=== PATIENT | female | born 1930 | race Caucasian/White ===

== ENCOUNTER 2019-02-10 00:18 | Inpatient (IN) | payer MEDICAID ==
[2019-02-10 02:23] LABS: ADD MAN DIFF? NO
[2019-02-10 02:24] LABS: BASOPHILS % 0.3 % (0.0-2.0); EOSINOPHILS % 0.2 % (0.0-7.0); HEMATOCRIT 31.7 % (37.0-47.0); HEMOGLOBIN 9.9 g/dl (12.0-16.0); LYMPHOCYTES # 2.1 10^3/ul (0.8-2.9); LYMPHOCYTES % 17.5 % (15.0-51.0); MEAN CORPUSCULAR HEMOGLOBIN 28.2 pg (29.0-33.0); MEAN CORPUSCULAR HGB CONC 31.2 g/dl (32.0-37.0); MEAN CORPUSCULAR VOLUME 90.3 fl (82.0-101.0); MEAN PLATELET VOLUME 9.6 fl (7.4-10.4); MONOCYTE # 1.1 10^3/ul (0.3-0.9); MONOCYTES % 8.8 % (0.0-11.0); NEUTROPHIL # 8.7 10^3/ul (1.6-7.5); NEUTROPHILS % 72.4 % (39.0-77.0); PLATELET COUNT 352 10^3/UL (140-415); RED BLOOD COUNT 3.51 10^6/ul (4.20-5.40); RED CELL DISTRIBUTION WIDTH 13.2 % (11.5-14.5)
[2019-02-10 02:44] LABS: ALANINE AMINOTRANSFERASE 38 IU/L (13-69); ALBUMIN 3.2 g/dl (3.3-4.9); ALBUMIN/GLOBULIN RATIO 0.86; ALKALINE PHOSPHATASE 88 IU/L (42-121); ANION GAP 5 (5-13); ASPARTATE AMINO TRANSFERASE 38 IU/L (15-46); BILIRUBIN,INDIRECT 0.3 mg/dl (0-1.1); BILIRUBIN,TOTAL 0.3 mg/dl (0.2-1.3); BLOOD UREA NITROGEN 15 mg/dl (7-20); CARBON DIOXIDE 32 mmol/L (21-31); CHLORIDE 103 mmol/L (97-110); CREATININE 0.53 mg/dl (0.44-1.00); GLUCOSE 123 mg/dl (70-220); LIPASE 11 U/L (23-300); POTASSIUM 4.6 mmol/L (3.5-5.1); SODIUM 140 mmol/L (135-144); TOTAL PROTEIN 6.9 g/dl (6.1-8.1)
[2019-02-10 02:47] LABS: ADD UMIC NO; UR ASCORBIC ACID 40 mg/dL (NEGATIVE); UR BILIRUBIN (Dip) NEGATIVE (NEGATIVE); UR BLOOD (Dip) NEGATIVE (NEGATIVE); UR CLARITY CLEAR (CLEAR); UR COLOR YELLOW (YELLOW); UR GLUCOSE (Dip) NEGATIVE (NEGATIVE); UR KETONES (Dip) NEGATIVE (NEGATIVE); UR LEUKOCYTE ESTERASE (Dip) NEGATIVE Leu/ul (NEGATIVE); UR NITRITE (Dip) NEGATIVE (NEGATIVE); UR SPECIFIC GRAVITY (Dip) 1.019 (1.003-1.030); UR TOTAL PROTEIN (Dip) NEGATIVE (NEGATIVE); UR UROBILINOGEN (Dip) NEGATIVE (NEGATIVE)
[2019-02-10] MEDS: morphine 2 MG INJ IV ×2 (04:25→06:09)
[2019-02-10] MEDS: ONDANSETRON 4 MG INJ IV (04:25)
[2019-02-10] MEDS ORDERED: NACL 0.9% 3 ML SYG IV (05:30)
[2019-02-10] MEDS ORDERED: ONDANSETRON 4 MG INJ IV (05:30)
[2019-02-10] MEDS ORDERED: VANCOMYCIN IV PER PHARMACY XX (05:30)
[2019-02-10] MEDS: SOD CHLORIDE 0.9% 1,000 ML IV ×2 (06:08→17:11)
[2019-02-10] MEDS: CEFTRIAXONE 1 GM/50 ML (PMX) 50 ML IVPB (06:08)
[2019-02-10] MEDS: VANCOMYCIN 1 GM 250 ML IVPB (06:46)
[2019-02-10 07:21] LABS: C-REACTIVE PROTEIN 19.9 mg/dl (0.0-0.9)
[2019-02-10] MEDS ORDERED: PENDING SANTYL ORDER FOR WOUND CARE XX (07:30)
[2019-02-10] MEDS ORDERED: COLLAGENASE 5 GM (UD JAR) TOP (07:30)
[2019-02-10 07:52] LABS: ERYTHROCYTE SEDIMENTATION RATE 85 mm/Hr (0-30)
[2019-02-10] MEDS: LORAZEPAM 2 MG INJ IV (08:08)
[2019-02-10] MEDS: COLLAGENASE 5 GM (UD JAR) TOP (09:32)
[2019-02-10] MEDS: MUPIROCIN 2% 22 GM OINT TOP ×2 (15:39→22:18)
[2019-02-10] MEDS: RANITIDINE 150 MG TAB GTB (21:42)
[2019-02-10] MEDS: traMADol 50 MG TAB GTB (21:43)
[2019-02-10] MEDS: AMLODIPINE 5 MG TAB PO (22:17)
[2019-02-10] MEDS: SENNA TAB GTB (22:18)
[2019-02-10] MEDS: PIPER-TAZO 3.375 GM IV (PMX) 100 ML IVPB (23:27)
[2019-02-11] MEDS ORDERED: PIPER-TAZO 3.375 GM IV (PMX) 100 ML IVPB
[2019-02-11] MEDS: morphine 2 MG INJ IV (01:24)
[2019-02-11] MEDS: PIPER-TAZO 3.375 GM IV (PMX) 100 ML IVPB ×3 (05:56→21:30)
[2019-02-11 06:14] LABS: ADD MAN DIFF? NO
[2019-02-11] MEDS: SOD CHLORIDE 0.9% 1,000 ML IV ×2 (06:15→18:12)
[2019-02-11 06:35] LABS: WHITE BLOOD COUNT 12.7 10^3/ul (4.8-10.8)
[2019-02-11 06:35] LABS: BASOPHILS % 0.3 % (0.0-2.0); EOSINOPHILS % 0.3 % (0.0-7.0); HEMATOCRIT 36.3 % (37.0-47.0); HEMOGLOBIN 11.5 g/dl (12.0-16.0); LYMPHOCYTES # 1.6 10^3/ul (0.8-2.9); LYMPHOCYTES % 12.8 % (15.0-51.0); MEAN CORPUSCULAR HEMOGLOBIN 28.3 pg (29.0-33.0); MEAN CORPUSCULAR HGB CONC 31.7 g/dl (32.0-37.0); MEAN CORPUSCULAR VOLUME 89.2 fl (82.0-101.0); MEAN PLATELET VOLUME 10.2 fl (7.4-10.4); MONOCYTE # 0.9 10^3/ul (0.3-0.9); MONOCYTES % 7.3 % (0.0-11.0); NEUTROPHIL # 9.9 10^3/ul (1.6-7.5); NEUTROPHILS % 78.1 % (39.0-77.0); PLATELET COUNT 313 10^3/UL (140-415); RED BLOOD COUNT 4.07 10^6/ul (4.20-5.40); RED CELL DISTRIBUTION WIDTH 13.1 % (11.5-14.5)
[2019-02-11 07:47] LABS: HEMOGLOBIN A1C 6.3 % (0-5.9)
[2019-02-11 07:48] LABS: ALANINE AMINOTRANSFERASE 36 IU/L (13-69); ALBUMIN 3.4 g/dl (3.3-4.9); ALBUMIN/GLOBULIN RATIO 0.89; ALKALINE PHOSPHATASE 108 IU/L (42-121); ANION GAP 9 (5-13); ASPARTATE AMINO TRANSFERASE 52 IU/L (15-46); BILIRUBIN,INDIRECT 0.3 mg/dl (0-1.1); BILIRUBIN,TOTAL 0.3 mg/dl (0.2-1.3); BLOOD UREA NITROGEN 12 mg/dl (7-20); CALCIUM 9.1 mg/dl (8.4-10.2); CARBON DIOXIDE 27 mmol/L (21-31); CHLORIDE 101 mmol/L (97-110); CREATININE 0.53 mg/dl (0.44-1.00); GLUCOSE 158 mg/dl (70-220); POTASSIUM 4.1 mmol/L (3.5-5.1); SODIUM 137 mmol/L (135-144); TOTAL PROTEIN 7.2 g/dl (6.1-8.1)
[2019-02-11 07:54] LABS: CHOLESTEROL 140 mg/dl (100-200)
[2019-02-11 07:54] LABS: CHOL/HDL RATIO 3.6 RATIO; HDL CHOLESTEROL 38 mg/dl (33-92); LDL CHOLESTEROL,CALCULATED 87 mg/dl; TRIGLYCERIDES 75 mg/dl (0-149)
[2019-02-11] MEDS: VANCOMYCIN 1 GM 250 ML IVPB (08:23)
[2019-02-11] MEDS: COLLAGENASE 5 GM (UD JAR) TOP (08:23)
[2019-02-11] MEDS: MUPIROCIN 2% 22 GM OINT TOP ×2 (08:24→21:27)
[2019-02-11] MEDS: AMLODIPINE 5 MG TAB PO (08:24)
[2019-02-11] MEDS: RANITIDINE 150 MG TAB GTB ×2 (08:24→21:18)
[2019-02-11] MEDS: GABAPENTIN 300 MG CAP GTB ×2 (13:56→21:19)
[2019-02-11] MEDS: ASPIRIN 81 MG TAB PO (13:56)
[2019-02-11] MEDS: DOCUSATE SODIUM 100 MG CAP PO (21:00)
[2019-02-11] MEDS: SENNA TAB GTB (21:18)
[2019-02-11] MEDS: FAMOTIDINE 20 MG TAB GTB (21:19)
[2019-02-11] MEDS: METOPROLOL 50 MG TAB GTB (21:21)
[2019-02-12] MEDS: SOD CHLORIDE 0.9% 1,000 ML IV ×2 (03:14→19:45)
[2019-02-12 05:39] LABS: ADD MAN DIFF? NO
[2019-02-12 05:54] LABS: BASOPHILS % 0.3 % (0.0-2.0); EOSINOPHILS # 0.1 10^3/ul (0.0-0.5); EOSINOPHILS % 0.6 % (0.0-7.0); HEMATOCRIT 32.6 % (37.0-47.0); LYMPHOCYTES # 1.8 10^3/ul (0.8-2.9); LYMPHOCYTES % 15.1 % (15.0-51.0); MEAN CORPUSCULAR HEMOGLOBIN 27.9 pg (29.0-33.0); MEAN CORPUSCULAR HGB CONC 30.7 g/dl (32.0-37.0); MEAN CORPUSCULAR VOLUME 90.8 fl (82.0-101.0); MEAN PLATELET VOLUME 10.3 fl (7.4-10.4); MONOCYTE # 0.9 10^3/ul (0.3-0.9); MONOCYTES % 7.4 % (0.0-11.0); NEUTROPHILS % 75.8 % (39.0-77.0); PLATELET COUNT 315 10^3/UL (140-415); RED BLOOD COUNT 3.59 10^6/ul (4.20-5.40); RED CELL DISTRIBUTION WIDTH 13.2 % (11.5-14.5)
[2019-02-12 05:54] LABS: WHITE BLOOD COUNT 11.8 10^3/ul (4.8-10.8)
[2019-02-12 05:56] LABS: POSITIVE DIFF @See below
[2019-02-12] MEDS: PIPER-TAZO 3.375 GM IV (PMX) 100 ML IVPB ×2 (06:00→08:34)
[2019-02-12 06:14] LABS: ALANINE AMINOTRANSFERASE 49 IU/L (13-69); ALBUMIN 2.9 g/dl (3.3-4.9); ALBUMIN/GLOBULIN RATIO 0.85; ALKALINE PHOSPHATASE 96 IU/L (42-121); ANION GAP 4 (5-13); ASPARTATE AMINO TRANSFERASE 53 IU/L (15-46); BILIRUBIN,INDIRECT 0.2 mg/dl (0-1.1); BILIRUBIN,TOTAL 0.2 mg/dl (0.2-1.3); BLOOD UREA NITROGEN 15 mg/dl (7-20); CALCIUM 8.1 mg/dl (8.4-10.2); CARBON DIOXIDE 31 mmol/L (21-31); CHLORIDE 105 mmol/L (97-110); CREATININE 0.53 mg/dl (0.44-1.00); GLUCOSE 175 mg/dl (70-220); POTASSIUM 4.2 mmol/L (3.5-5.1); SODIUM 140 mmol/L (135-144); TOTAL PROTEIN 6.3 g/dl (6.1-8.1)
[2019-02-12] MEDS: GABAPENTIN 300 MG CAP GTB ×3 (06:17→21:27)
[2019-02-12] MEDS: traMADol 50 MG TAB GTB (06:17)
[2019-02-12] MEDS: DOCUSATE SODIUM 10 MG/ML (10ML CUP) GTB ×2 (08:31→21:27)
[2019-02-12] MEDS: ENOXAPARIN 30 MG/0.3 ML SYG SC (08:31)
[2019-02-12] MEDS: ASCORBIC ACID 500 MG TAB GTB (08:34)
[2019-02-12] MEDS: ZINC SULFATE 220 MG CAP GTB (08:34)
[2019-02-12] MEDS: AMLODIPINE 5 MG TAB PO (08:35)
[2019-02-12] MEDS: METOPROLOL 50 MG TAB GTB ×2 (08:35→21:29)
[2019-02-12] MEDS: MULTIVITAMINS/MINERALS TAB PO (08:35)
[2019-02-12] MEDS: RANITIDINE 150 MG TAB GTB ×2 (08:35→21:27)
[2019-02-12] MEDS: ASPIRIN 81 MG TAB PO (08:35)
[2019-02-12] MEDS: COLLAGENASE 5 GM (UD JAR) TOP (08:36)
[2019-02-12] MEDS: MUPIROCIN 2% 22 GM OINT TOP ×2 (08:36→22:40)
[2019-02-12] MEDS: VANCOMYCIN 1 GM 250 ML IVPB (09:41)
[2019-02-12] MEDS: LIDOCAINE 1% (MPF) 5 ML VIAL SC (13:50)
[2019-02-12] MEDS: CEFEPIME 1GM/50 ML (PMX) 50 ML IVPB (21:27)
[2019-02-12] MEDS: SENNA TAB GTB (21:27)
[2019-02-12] MEDS: FAMOTIDINE 20 MG TAB GTB (21:28)
[2019-02-13] MEDS: SOD CHLORIDE 0.9% 1,000 ML IV ×2 (01:19→20:36)
[2019-02-13] MEDS: hydrALAzine 20 MG INJ IV (05:41)
[2019-02-13] MEDS: GABAPENTIN 300 MG CAP GTB ×3 (05:53→21:15)
[2019-02-13 08:36] LABS: ADD MAN DIFF? NO
[2019-02-13 08:39] LABS: WHITE BLOOD COUNT 13.4 10^3/ul (4.8-10.8)
[2019-02-13 08:39] LABS: BASOPHIL # 0.1 10^3/ul (0.0-0.1); BASOPHILS % 0.4 % (0.0-2.0); EOSINOPHILS % 0.1 % (0.0-7.0); HEMATOCRIT 33.4 % (37.0-47.0); HEMOGLOBIN 10.1 g/dl (12.0-16.0); LYMPHOCYTES # 1.4 10^3/ul (0.8-2.9); LYMPHOCYTES % 10.7 % (15.0-51.0); MEAN CORPUSCULAR HEMOGLOBIN 27.9 pg (29.0-33.0); MEAN CORPUSCULAR HGB CONC 30.2 g/dl (32.0-37.0); MEAN CORPUSCULAR VOLUME 92.3 fl (82.0-101.0); MEAN PLATELET VOLUME 10.1 fl (7.4-10.4); MONOCYTE # 0.7 10^3/ul (0.3-0.9); MONOCYTES % 5.5 % (0.0-11.0); NEUTROPHILS % 82.4 % (39.0-77.0); PLATELET COUNT 326 10^3/UL (140-415); RED BLOOD COUNT 3.62 10^6/ul (4.20-5.40); RED CELL DISTRIBUTION WIDTH 13.3 % (11.5-14.5)
[2019-02-13 09:14] LABS: VANCOMYCIN,TROUGH 7.6 ug/ml (10.0-20.0)
[2019-02-13 09:26] LABS: ALANINE AMINOTRANSFERASE 62 IU/L (13-69); ALBUMIN 2.8 g/dl (3.3-4.9); ALBUMIN/GLOBULIN RATIO 0.87; ALKALINE PHOSPHATASE 115 IU/L (42-121); ANION GAP 10 (5-13); ASPARTATE AMINO TRANSFERASE 59 IU/L (15-46); BILIRUBIN,INDIRECT 0.1 mg/dl (0-1.1); BILIRUBIN,TOTAL 0.1 mg/dl (0.2-1.3); BLOOD UREA NITROGEN 15 mg/dl (7-20); CALCIUM 8.4 mg/dl (8.4-10.2); CARBON DIOXIDE 24 mmol/L (21-31); CHLORIDE 105 mmol/L (97-110); CREATININE 0.39 mg/dl (0.44-1.00); GLUCOSE 181 mg/dl (70-220); POTASSIUM 4.2 mmol/L (3.5-5.1); SODIUM 139 mmol/L (135-144)
[2019-02-13] MEDS: VANCOMYCIN 1 GM 250 ML IVPB (09:38)
[2019-02-13] MEDS: METOPROLOL 50 MG TAB GTB ×2 (09:39→20:43)
[2019-02-13] MEDS: ZINC SULFATE 220 MG CAP GTB (09:39)
[2019-02-13] MEDS: DOCUSATE SODIUM 10 MG/ML (10ML CUP) GTB ×2 (09:39→20:38)
[2019-02-13] MEDS: MULTIVITAMINS/MINERALS TAB PO (09:39)
[2019-02-13] MEDS: ASPIRIN 81 MG TAB PO (09:39)
[2019-02-13] MEDS: ENOXAPARIN 30 MG/0.3 ML SYG SC (09:40)
[2019-02-13] MEDS: ASCORBIC ACID 500 MG TAB GTB (09:41)
[2019-02-13] MEDS: RANITIDINE 150 MG TAB GTB ×2 (09:41→20:38)
[2019-02-13] MEDS: AMLODIPINE 5 MG TAB PO (09:41)
[2019-02-13] MEDS: MUPIROCIN 2% 22 GM OINT TOP ×2 (09:41→20:42)
[2019-02-13] MEDS: COLLAGENASE 5 GM (UD JAR) TOP (09:41)
[2019-02-13] MEDS: LISINOPRIL 20 MG TAB GTB ×2 (11:15→20:43)
[2019-02-13] MEDS: CEFEPIME 1GM/50 ML (PMX) 50 ML IVPB ×2 (12:11→20:38)
[2019-02-13] MEDS: SENNA TAB GTB (20:38)
[2019-02-13] MEDS: FAMOTIDINE 20 MG TAB GTB (20:38)
[2019-02-14] MEDS: morphine 2 MG INJ IV (04:58)
[2019-02-14] MEDS: GABAPENTIN 300 MG CAP GTB ×3 (05:11→21:39)
[2019-02-14 05:14] LABS: ADD MAN DIFF? NO
[2019-02-14 05:23] LABS: BASOPHILS % 0.3 % (0.0-2.0); EOSINOPHILS # 0.1 10^3/ul (0.0-0.5); EOSINOPHILS % 0.7 % (0.0-7.0); HEMATOCRIT 32.7 % (37.0-47.0); HEMOGLOBIN 9.9 g/dl (12.0-16.0); LYMPHOCYTES # 1.3 10^3/ul (0.8-2.9); MEAN CORPUSCULAR HEMOGLOBIN 27.6 pg (29.0-33.0); MEAN CORPUSCULAR HGB CONC 30.3 g/dl (32.0-37.0); MEAN CORPUSCULAR VOLUME 91.1 fl (82.0-101.0); MONOCYTE # 0.6 10^3/ul (0.3-0.9); MONOCYTES % 5.3 % (0.0-11.0); NEUTROPHIL # 8.6 10^3/ul (1.6-7.5); PLATELET COUNT 292 10^3/UL (140-415); RED BLOOD COUNT 3.59 10^6/ul (4.20-5.40); RED CELL DISTRIBUTION WIDTH 13.5 % (11.5-14.5)
[2019-02-14 05:23] LABS: WHITE BLOOD COUNT 10.7 10^3/ul (4.8-10.8)
[2019-02-14 06:15] LABS: ALANINE AMINOTRANSFERASE 58 IU/L (13-69); ALBUMIN 2.9 g/dl (3.3-4.9); ALBUMIN/GLOBULIN RATIO 0.87; ALKALINE PHOSPHATASE 107 IU/L (42-121); ANION GAP 6 (5-13); ASPARTATE AMINO TRANSFERASE 52 IU/L (15-46); BILIRUBIN,INDIRECT 0.1 mg/dl (0-1.1); BILIRUBIN,TOTAL 0.1 mg/dl (0.2-1.3); BLOOD UREA NITROGEN 16 mg/dl (7-20); CALCIUM 8.4 mg/dl (8.4-10.2); CARBON DIOXIDE 27 mmol/L (21-31); CHLORIDE 105 mmol/L (97-110); CREATININE 0.41 mg/dl (0.44-1.00); GLUCOSE 195 mg/dl (70-220); POTASSIUM 3.8 mmol/L (3.5-5.1); SODIUM 138 mmol/L (135-144); TOTAL PROTEIN 6.2 g/dl (6.1-8.1)
[2019-02-14] MEDS: CEFEPIME 1GM/50 ML (PMX) 50 ML IVPB (09:18)
[2019-02-14] MEDS: ZINC SULFATE 220 MG CAP GTB (09:18)
[2019-02-14] MEDS: ASPIRIN 81 MG TAB PO (09:18)
[2019-02-14] MEDS: MULTIVITAMINS/MINERALS TAB PO (09:18)
[2019-02-14] MEDS: METOPROLOL 50 MG TAB GTB ×2 (09:19→21:35)
[2019-02-14] MEDS: ASCORBIC ACID 500 MG TAB GTB (09:19)
[2019-02-14] MEDS: RANITIDINE 150 MG TAB GTB ×2 (09:19→21:42)
[2019-02-14] MEDS: AMLODIPINE 5 MG TAB PO (09:19)
[2019-02-14] MEDS: DOCUSATE SODIUM 10 MG/ML (10ML CUP) GTB ×2 (09:20→21:36)
[2019-02-14] MEDS: LISINOPRIL 20 MG TAB GTB ×2 (09:20→21:36)
[2019-02-14] MEDS: COLLAGENASE 5 GM (UD JAR) TOP (09:20)
[2019-02-14] MEDS: MUPIROCIN 2% 22 GM OINT TOP ×2 (09:21→21:37)
[2019-02-14] MEDS: ENOXAPARIN 30 MG/0.3 ML SYG SC (09:22)
[2019-02-14] MEDS: SOD CHLORIDE 0.9% 1,000 ML IV ×2 (09:40→21:39)
[2019-02-14] MEDS: VANCOMYCIN HCL 1.25 GM in SOD CHLORIDE 0.9% 250 ML IVPB (10:50)
[2019-02-14] MEDS: LEVALBUTEROL (NEB) 1.25 MG/0.5 ML AMP HHN (14:05)
[2019-02-14] MEDS: AMPICILLIN 1 GM/NS (PMX) 50 ML IVPB (17:50)
[2019-02-14] MEDS: FAMOTIDINE 20 MG TAB GTB (21:36)
[2019-02-14] MEDS: SENNA TAB GTB (21:36)
[2019-02-15] MEDS: AMPICILLIN 1 GM/NS (PMX) 50 ML IVPB ×4 (00:46→18:10)
[2019-02-15] MEDS: morphine 2 MG INJ IV ×2 (01:55→15:08)
[2019-02-15] MEDS: hydrALAzine 20 MG INJ IV (02:18)
[2019-02-15] MEDS: GABAPENTIN 300 MG CAP GTB ×3 (06:16→20:25)
[2019-02-15] MEDS: SOD CHLORIDE 0.9% 1,000 ML IV ×2 (06:16→22:45)
[2019-02-15] MEDS: ACETAMINOPHEN 650 MG SUPP PR (08:26)
[2019-02-15] MEDS: MULTIVITAMINS/MINERALS TAB PO (09:24)
[2019-02-15] MEDS: DOCUSATE SODIUM 10 MG/ML (10ML CUP) GTB ×2 (09:24→20:24)
[2019-02-15] MEDS: ASCORBIC ACID 500 MG TAB GTB (09:25)
[2019-02-15] MEDS: ASPIRIN 81 MG TAB PO (09:25)
[2019-02-15] MEDS: RANITIDINE 150 MG TAB GTB ×2 (09:25→20:24)
[2019-02-15] MEDS: ZINC SULFATE 220 MG CAP GTB (09:26)
[2019-02-15] MEDS: METOPROLOL 50 MG TAB GTB ×2 (09:28→20:25)
[2019-02-15] MEDS: LISINOPRIL 20 MG TAB GTB ×2 (09:28→20:25)
[2019-02-15] MEDS: AMLODIPINE 5 MG TAB PO (09:28)
[2019-02-15] MEDS: COLLAGENASE 5 GM (UD JAR) TOP (09:30)
[2019-02-15] MEDS: ENOXAPARIN 30 MG/0.3 ML SYG SC (09:31)
[2019-02-15] MEDS: MUPIROCIN 2% 22 GM OINT TOP ×2 (09:32→20:26)
[2019-02-15] MEDS: LEVOFLOXACIN 500 MG TAB GTB (13:46)
[2019-02-15] MEDS: FAMOTIDINE 20 MG TAB GTB (20:25)
[2019-02-15] MEDS: SENNA TAB GTB (20:25)
[2019-02-16] MEDS: AMPICILLIN 1 GM/NS (PMX) 50 ML IVPB ×4 (00:23→18:00)
[2019-02-16] MEDS: LEVOFLOXACIN 250 MG TAB GTB (06:16)
[2019-02-16] MEDS: GABAPENTIN 300 MG CAP GTB ×2 (06:16→13:23)
[2019-02-16] MEDS: ENOXAPARIN 30 MG/0.3 ML SYG SC (08:54)
[2019-02-16] MEDS: AMLODIPINE 5 MG TAB PO (08:55)
[2019-02-16] MEDS: ZINC SULFATE 220 MG CAP GTB (08:55)
[2019-02-16] MEDS: ASPIRIN 81 MG TAB PO (08:55)
[2019-02-16] MEDS: MULTIVITAMINS/MINERALS TAB PO (08:55)
[2019-02-16] MEDS: RANITIDINE 150 MG TAB GTB (08:55)
[2019-02-16] MEDS: ASCORBIC ACID 500 MG TAB GTB (08:56)
[2019-02-16] MEDS: DOCUSATE SODIUM 10 MG/ML (10ML CUP) GTB (08:56)
[2019-02-16] MEDS: COLLAGENASE 5 GM (UD JAR) TOP (08:57)
[2019-02-16] MEDS: METOPROLOL 50 MG TAB GTB (08:57)
[2019-02-16] MEDS: MUPIROCIN 2% 22 GM OINT TOP (09:16)
[2019-02-16] MEDS: LISINOPRIL 20 MG TAB GTB (09:19)
[2019-02-16] MEDS: morphine 2 MG INJ IV ×2 (13:26→18:23)
[2019-02-16] MEDS: hydrALAzine 20 MG INJ IV (20:55)
[2019-02-17] MEDS ORDERED: ALENDRONATE 70 MG TAB PO (06:55)
== END 2019-02-16 21:55 | DRG 872 ==
LOC: E/R 00:18 → PP2 04:13
PROC: 02H633Z Insertion of Infusion Device into Right Atrium, Percutaneous Approach (ICD-10-PCS; principal; 2019-02-12)
PROC: B54MZZA Ultrasonography of Right Upper Extremity Veins, Guidance (ICD-10-PCS; 2019-02-12)
DX: A41.9 Sepsis, unspecified organism (principal); E11.52 Type 2 diabetes mellitus with diabetic peripheral angiopathy with gangrene; I96 Gangrene, not elsewhere classified; G93.40 Encephalopathy, unspecified; I69.354 Hemiplegia and hemiparesis following cerebral infarction affecting left non-dominant side; M86.9 Osteomyelitis, unspecified; N39.0 Urinary tract infection, site not specified; E11.40 Type 2 diabetes mellitus with diabetic neuropathy, unspecified; R13.10 Dysphagia, unspecified; E11.69 Type 2 diabetes mellitus with other specified complication; I10 Essential (primary) hypertension; M19.90 Unspecified osteoarthritis, unspecified site; F03.90 Unspecified dementia, unspecified severity, without behavioral disturbance, psychotic disturbance, mood disturbance, and anxiety; Z66 Do not resuscitate; D63.8 Anemia in other chronic diseases classified elsewhere; I25.10 Atherosclerotic heart disease of native coronary artery without angina pectoris; I48.91 Unspecified atrial fibrillation; Z93.1 Gastrostomy status; I69.391 Dysphagia following cerebral infarction; E11.42 Type 2 diabetes mellitus with diabetic polyneuropathy; K59.00 Constipation, unspecified; M81.0 Age-related osteoporosis without current pathological fracture; Z89.422 Acquired absence of other left toe(s)
CPT/HCPCS: 36569; 70450; 71045; 73630-LT; 76937; 80053; 80061; 80202; 81003; 83036; 83690; 84443; 85025; 85651; 86140; 87040-91; 87070; 87081; 92526; 92610; 93005; 93922; 93970; 94664